=== PATIENT | male | born 1965 | race American Indian/Alaskan Native ===

== ENCOUNTER 2020-03-19 08:54 | Outpatient (CLI) | payer OTHER ==
--- NOTE | 2020-03-19 13:18 | XRay Report ---
LUMBAR SPINE 3 VIEWS INDICATION: Back pain. COMPARISON: No relevant prior imaging study available. FINDINGS: VERTEBRAE: No acute fracture. Normal alignment. DISC SPACES: No significant abnormality. FACET JOINTS: No significant abnormality. SOFT TISSUES: No significant abnormality. ADDITIONAL FINDINGS: No additional significant findings. IMPRESSION: 1. No acute findings. Signer Name: Hugo Bennett MD Signed: 03/19/2020 1:14 PM Workstation Name: [id number]
--- NOTE | 2020-03-19 13:44 | XRay Report ---
Cervical spine AP and lateral views INDICATION / CLINICAL INFORMATION: NECK PAIN. COMPARISON: None available. FINDINGS: BONES/JOINT(S): No acute fracture or subluxation. No significant degenerative changes. SOFT TISSUES: No significant abnormality. ADDITIONAL FINDINGS: None. Signer Name: Hayden Odell MD Signed: 03/19/2020 1:40 PM Workstation Name: [email or web address]
--- NOTE | 2020-03-19 13:44 | XRay Report ---
BILATERAL KNEES, 2 VIEWS EACH INDICATION / CLINICAL INFORMATION: BILATERAL KNEE PAIN. COMPARISON: None available. FINDINGS: BONES/JOINT(S): No acute fracture or subluxation. 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 No significant joint effusion. SOFT TISSUES: No significant abnormality. ADDITIONAL FINDINGS: None. Signer Name: Hayden Odell MD Signed: 03/19/2020 1:40 PM Workstation Name: [email or web address]
== END 2020-03-19 08:55 | disposition home or self-care (01) ==
LOC: XRAY 08:54
PROVIDERS: ATTEND Internal Medicine
DX: M17.0 Bilateral primary osteoarthritis of knee (principal); M51.26 Other intervertebral disc displacement, lumbar region; M19.042 Primary osteoarthritis, left hand; M19.041 Primary osteoarthritis, right hand; M50.20 Other cervical disc displacement, unspecified cervical region; R41.3 Other amnesia
CPT/HCPCS: 72040; 72100